=== PATIENT | male | born 1960 | race Caucasian/White ===

== ENCOUNTER 2016-07-02 13:43 | Emergency (ER) | payer BC ==
--- NOTE | 2016-07-02 17:07 | UC ---
Abdominal Pain Male HPI - HPI Summary HPI Summary: The patient comes in today for: 1. Abdominal pain/alcoholism: Onset: 7 days ago. Palliative/provocative: Nothing made the abdominal pain better or worse. Quality: No abdominal pain at this time. And his jaundice has improved. Region: Abdomen Severity: 0/10 Time: Constant. Associated symptoms: Event: Alcoholism: He has been drinking about 24 years on and off. Initially, he drank for 15 years, then stopped for 7. He started drinking again for 5 years and then stopped a second time for 5 years and then started a third time drinking 4 years. At the end of this 4 years, he suffered: a. Yellow skin color b. Epigastric abdominal pain and lower left pain--only 2/10 He got scared of the jaundiced and stopped weaning himself off. He has been off alcohol totally for one week. Abdominal pain: He states that over the last week, his abdominal pain has gotten better. He denies any other symptoms. However, he is interested in knowing his state of health. He has some swelling of his feet/ankle. Regular PCP: Dr. Lang *He states that he is going to and in the process of getting a sponsor. 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 - Allergies/Home Medications Allergies/Adverse Reactions: Allergies Allergy/AdvReac Type Severity Reaction Status Date / Time No Known Allergies Allergy Verified 07/02/16 15:39 Home Medications: Home Medications NK [No Home Medications Reported] 07/02/16 [History Confirmed 07/02/16] PMH/Surg Hx/FS Hx/Imm Hx Previously Healthy: No Endocrine History Of: Denies: Diabetes, Thyroid Disease, Hyperthyroidism, Hypothyroidism, Dyslipidemia Cardiovascular History Of: Denies: Cardiac Disorders, Hypertension, Pacemaker/ICD, Myocardial Infarction , Congestive Heart Failure, Atrial Fibrillation, Deep Vein Thrombosis, Bleeding Disorders Respiratory History Of: Denies: COPD, Asthma, Bronchitis, Pneumonia, Pulmonary Embolism GI/ History Of: Reports: Gall Bladder Disease - He had a gallstone not removed. Denies: Gastroesophageal Reflux, Ulcer, Gastrointestinal Bleed, Kidney Stones , Diverticulitis, Renal Disease, Urosepsis Neurological History Of: Denies: TIA, CVA, Dementia, Seizures, Migraine Psychological History Of: Denies: Anxiety, Depression, Bipolar Disorder, Schizophrenia, Post Traumatic Stress Disorder Cancer History Of: Denies: Lung Cancer, Colorectal Cancer, Breast Cancer, Prostate Cancer, Cervical Cancer Other History Of: Negative For: HIV, Hepatitis B, Hepatitis C, Anticoagulant Therapy - Surgical History Surgical History: None - Family History Known Family History: Negative: Cardiac Disease, Hypertension - Social History Occupation: Employed Full-time Alcohol Use: see amount below Alcohol Amount: before quitting, drank 1 bottle of vodka every 3 days Substance Use Type: None Smoking Status (MU): Current Every Day Smoker Amount Used/How Often: 3/4 pack a day Review of Systems Constitutional: Negative Skin: Negative Eyes: Negative ENT: Negative Respiratory: Negative Cardiovascular: Negative Gastrointestinal: Abdominal Pain Genitourinary: Negative All Other Systems Reviewed And Are Negative: Yes Physical Exam Triage Information Reviewed: Yes Appearance: Well-Appearing - He is in no distress, but he has yellow jaundice which he states is better than before., No Pain Distress, Ill-Appearing - He has yellow jaundice of the sclera and skin, but h states that it is better. Vital Signs: Initial Vital Signs Temp 98.4 F 07/02/16 15:42 Pulse 78 07/02/16 15:42 Resp 18 07/02/16 15:42 BP 122/69 07/02/16 15:42 Pulse Ox 100 07/02/16 15:42 Vital Signs Reviewed: Yes Eyes: Positive: Conjunctiva Clear. Negative: Discharge ENT: Positive: Hearing grossly normal. Negative: Pharyngeal erythema, Nasal congestion, Nasal drainage, TM bulging, TM dull, TM red, Tonsillar swelling, Tonsillar exudate Dental: Negative: Gross Decay/Caries @, Dental Fracture @ Neck: Positive: Supple, Nontender, No Lymphadenopathy. Negative: Nuchal Rigidity Respiratory: Positive: Lungs clear, No respiratory distress, No accessory muscle use. Negative: Rhonchi, Wheezing Cardiovascular: Positive: RRR, No Murmur, Other: - No Parasternal heave. NO gallop Abdomen Description: Positive: Nontender, No Organomegaly, Soft, Other: - He has abdominal wall varicose veins/ caput medusa. There is slight shifting dullness and central typmany. The liver edge is 4 fingerbreaths below the inferior rib margin of the anterior axillary line. NO epigastric tenderness. Spleenomegally,.. Negative: Distended, Guarding Musculoskeletal: Positive: Strength Intact, ROM Intact, Edema @ - He has edema of the lower legs., Other: - He has no asterixis. Neurological: Positive: Alert, Muscle Tone Normal Psychological: Positive: Age Appropriate Behavior, Consolable, Other: - He is oriented. Skin: Negative: rashes, breakdown Abd Pain Male Course/Dx - Differential Dx/Clinical Impression Provider Diagnoses: Abdominal pain, resolved. Alcoholism,. Resolving alcoholic hepatitis Discharge - Discharge Plan Condition: Stable Disposition: HOME Patient Education Materials: Alcohol Dependence (ED) Referrals: Romaine Lang MD [Primary Care Provider] - As Soon As Possible (Please see your primary care provider as soon as you can for further evaluation and treatment.) Additional Instructions: Take a one-a-day multiple vitamin daily. Refrain from alcohol use, and see AA daily.
[2016-07-02 17:57] VITALS: BP 126/81
[2016-07-03 10:35] LABS: Add Diff/Slide Review? Slide Review Added; Comments Flag Yes; Hematocrit 42 % (42-52); Hemoglobin 14.2 g/dl (14.0-18.0); Mean Corpuscular HGB Conc 34 g/dl (31-36); Mean Corpuscular Hemoglobin 35 pg (27-31); Mean Corpuscular Volume 103 fL (80-94); Mean Platelet Volume 9 um3 (7.4-10.4); Red Blood Count 4.02 10^6/ul (4.0-5.4); Red Cell Distribution Width 17 % (10.5-15); White Blood Count 5.4 10^3/ul (3.5-10.8)
[2016-07-03 10:55] LABS: Albumin 3.1 g/dL (3.2-5.2); BUN/Creatinine Ratio 8.6 (8-20); Calcium 8.4 mg/dL (8.6-10.3); EGFR African American 126.3 (>60); EGFR Non-African American 98.2 (>60); Globulin 2.7 g/dL (2-4); Potassium 3.1 mmol/L (3.5-5.0); Total Protein 5.8 g/dL (6.4-8.9)
== END 2016-07-02 17:59 | disposition home or self-care (01) ==
LOC: UCEAST 13:43
DX: R10.13 Epigastric pain (principal); R17 Unspecified jaundice; F10.20 Alcohol dependence, uncomplicated; F17.210 Nicotine dependence, cigarettes, uncomplicated
CPT/HCPCS: 36415; 80053; 85025; 99202; G0463

== ENCOUNTER → 2016-10-21 05:08 | Emergency (ER) | payer BC ==
[~2016-10-21 05:08] MED LIST: Magnesium Sulfate 2 GM IV* 2 GM/50 ML BAG IV ONE; NS 0.9% 1000 ML* 2,000 ML IV ONE; Thiamine IV* 100 MG, Folic Acid IV* 1 MG, Multiple Vitamin IV ADULT* 10 ML in NS 0.9% 1... IV ONE
[2016-10-21 05:12] VITALS: BP 112/66
[2016-10-21 06:37] LABS: Hematocrit 43 % (42-52); Hemoglobin 14.7 g/dl (14.0-18.0); Mean Corpuscular HGB Conc 34 g/dl (31-36); Mean Corpuscular Hemoglobin 35 pg (27-31); Mean Corpuscular Volume 102 fL (80-94); Mean Platelet Volume 8 um3 (7.4-10.4); Red Blood Count 4.22 10^6/ul (4.0-5.4); Red Cell Distribution Width 15 % (10.5-15); White Blood Count 5.3 10^3/ul (3.5-10.8)
[2016-10-21 06:39] LABS: Comments Flag Yes
[2016-10-21 06:40] LABS: Add Diff/Slide Review? Slide Review Added
[2016-10-21 06:49] LABS: ALT 29 U/L (7-52); AST 88 U/L (13-39); Acetaminophen < 15 mcg/mL; Albumin 3.6 g/dL (3.2-5.2); Alkaline Phosphatase 175 U/L (34-104); Anion Gap 5 mmol/L (2-11); Blood Urea Nitrogen 4 mg/dL (6-24); CO2 Carbon Dioxide 30 mmol/L (22-32); Calcium 9.1 mg/dL (8.6-10.3); Chloride 102 mmol/L (101-111); Creatine Kinase 81 U/L (10-223); EGFR African American 188.8 (>60); EGFR Non-African American 146.8 (>60); Globulin 3.3 g/dL (2-4); Glucose 126 mg/dL (70-100); Magnesium 1.8 mg/dL (1.9-2.7); Potassium 3.3 mmol/L (3.5-5.0); Salicylate < 2.50 mg/dL (<30); Sodium 137 mmol/L (133-145); Total Protein 6.9 g/dL (6.4-8.9)
[2016-10-21 06:57] LABS: Alcohol 435 mg/dL (<10)
--- NOTE | 2016-10-21 07:00 | ED ---
Katlyn Felipe Rebecca, scribed for James Koroma MD on 10/21/16 at 0547 . Substance Abuse/Use - HPI Summary HPI Summary: Pt is a 56 y/o M who presents to ED accompanied by his who presents to ED requesting detox. Pt reports "I'm a drunk, I got to sober up" and "I just want to be a normal person." Last drank 1-2 hours [employer]. Pt additionally c/o mild, bilateral LE pain ranked 2/10, secondary to poor circulation. He will be having surgery soon to "replace the arteries." He has tried rehab 5 times in the past with relapses. Has experienced withdrawal before. - History Of Current Complaint Chief Complaint: EDGeneral Stated Complaint: DETOX Time Seen by Provider: 10/21/16 05:38 Hx Obtained From: Patient, Family/Supervisor [employer] - Ingestion History: Type/Name Of Drug - EtOH, Approximate Time Of Ingestion - 1- 2 hours [employer] Overdose Characteristics: Oral Timing Of Abuse: Daily Aggravating Factor(s): Nothing Alleviating Factor(s): Nothing Associated Signs And Symptoms: Other: - Bilateral LE pain - Allergies/Home Medications Allergies/Adverse Reactions: Allergies Allergy/AdvReac Type Severity Reaction Status Date / Time No Known Allergies Allergy Verified 10/21/16 05:29 PMH/Surg Hx/FS Hx/Imm Hx Endocrine/Hematology History: Denies: Hx Anticoagulant Therapy, Hx Diabetes, Hx Thyroid Disease Cardiovascular History: Denies: Hx Congestive Heart Failure, Hx Deep Vein Thrombosis, Hx Hypertension , Hx Myocardial Infarction, Hx Pacemaker/ICD Respiratory History: Denies: Hx Asthma, Hx Chronic Obstructive Pulmonary Disease (COPD), Hx Lung Cancer, Hx Pneumonia, Hx Pulmonary Embolism GI History: Reports: Hx Gall Bladder Disease - He had a gallstone not removed. Denies: Hx Gastrointestinal Bleed, Hx Ulcer, Hx Urosepsis History: Denies: Hx Kidney Stones, Hx Renal Disease Neurological History: Denies: Hx Dementia, Hx Migraine, Hx Seizures, Hx Transient Ischemic Attacks (TIA) Psychiatric History: Denies: Hx Anxiety, Hx Depression, Hx Schizophrenia, Hx Bipolar Disorder - Immunization History Date of Tetanus Vaccine: unk Date of Influenza Vaccine: unk Infectious Disease History: No Infectious Disease History: Denies: Traveled Outside the [place] in Last 30 Days - Family History Known Family History: Negative: Cardiac Disease, Hypertension - Social History Alcohol Use: Daily Alcohol Amount: 1 bottle of vodka per day Substance Use Type: Reports: None Smoking Status (MU): Current Every Day Smoker Amount Used/How Often: 3/4 pack a day Review of Systems Positive: Arthralgia - Bilateral LE pain secondary to poor circulation Positive: Other - Requesting detox All Other Systems Reviewed And Are Negative: Yes Physical Exam - Summary Physical Exam Summary: The patient is well-nourished in no acute distress and in no acute pain. The skin is warm and dry and skin color reflects adequate perfusion. HEENT: The head is normocephalic and atraumatic. The pupils are equal and reactive. The conjunctivae are clear and without drainage. Nares are patent and without drainage. Mouth reveals moist mucous membranes and the throat is without erythema and exudate. The external ears are intact. The ear canals are patent and without drainage. The tympanic membranes are intact. Neck is supple with full range of motion and non-tender. Respiratory: Chest is non-tender. Lungs are clear to auscultation and breath sounds are symmetrical and equal. Cardiovascular: Hear is regular rate and rhythm. There is no murmur or rub auscultated. Pulses are symmetrical and equal. Abdomen: The abdomen is soft and non-tender. There are normal bowel sounds heard in all four quadrants and there is no organomegaly palpated. Musculoskeletal: There is no back pain noted. Extremities are non-tender with full range of motion. There is no calf tenderness elicited. There is bilateral LE swelling. Neurological: Patient is alert and oriented to person, place and time. Psychiatric: The patient has an appropriate affect and does not exhibit any anxiety or depression. Triage Information Reviewed: Yes Vital Signs On Initial Exam: Initial Vitals Temp Pulse Resp BP Pulse Ox 97.6 F 78 18 112/66 99 10/21/16 05:09 10/21/16 05:09 10/21/16 05:09 10/21/16 05:09 10/21/16 05:09 Vital Signs Reviewed: Yes - [place] Coma Scale Coma Scale Total: 15 Diagnostics - Vital Signs Vital Signs Temp Pulse Resp BP Pulse Ox 10/21/16 05:12 97.6 F 78 18 112/66 96 10/21/16 05:09 97.6 F 78 18 112/66 99 - Laboratory Lab Results: Lab Results 10/21/16 10/21/16 10/21/16 Range/Units 06:10 06:10 06:10 WBC 5.3 (3.5-10.8) 10^3/ul RBC 4.22 (4.0-5.4) 10^6/ul Hgb 14.7 (14.0-18.0) g/dl Hct 43 (42-52) % MCV 102 H (80-94) fL MCH 35 H (27-31) pg MCHC 34 (31-36) g/dl RDW 15 (10.5-15) % Plt Count 66 L (150-450) 10^3/ul MPV 8 (7.4-10.4) um3 Neut % (Auto) 50.9 (38-83) % Lymph % (Auto) 35.4 (25-47) % Freestone % (Auto) 8.3 (1-9) % Eos % (Auto) 4.3 (0-6) % Baso % (Auto) 1.1 (0-2) % Absolute Neuts (auto) 2.7 (1.5-7.7) 10^3/ul Absolute Lymphs (auto) 1.9 (1.0-4.8) 10^3/ul Absolute Monos (auto) 0.4 (0-0.8) 10^3/ul Absolute Eos (auto) 0.2 (0-0.6) 10^3/ul Absolute Basos (auto) 0.1 (0-0.2) 10^3/ul Absolute Nucleated RBC 0 10^3/ul Nucleated RBC % 0.1 Sodium 137 (133-145) mmol/L Potassium 3.3 L (3.5-5.0) mmol/L Chloride 102 (101-111) mmol/L Carbon Dioxide 30 (22-32) mmol/L Anion Gap 5 (2-11) mmol/L BUN 4 L (6-24) mg/dL Creatinine 0.57 L (0.67-1.17) mg/dL Est GFR ( Amer) 188.8 (>60) Est GFR (Non-Af Amer) 146.8 (>60) BUN/Creatinine Ratio 7.0 L (8-20) Glucose 126 H (70-100) mg/dL Lactic Acid 2.2 H* (0.5-2.0) mmol/L Calcium 9.1 (8.6-10.3) mg/dL Magnesium 1.8 L (1.9-2.7) mg/dL Total Bilirubin 2.60 H (0.2-1.0) mg/dL AST 88 H (13-39) U/L ALT 29 (7-52) U/L Alkaline Phosphatase 175 H (34-104) U/L Total Creatine Kinase 81 (10-223) U/L Total Protein 6.9 (6.4-8.9) g/dL Albumin 3.6 (3.2-5.2) g/dL Globulin 3.3 (2-4) g/dL Albumin/Globulin Ratio 1.1 (1-3) Salicylates < 2.50 (<30) mg/dL Acetaminophen < 15 mcg/mL Serum Alcohol 435 H* (<10) mg/dL Result Diagrams: 10/21/16 06:10 10/21/16 06:10 Lab Statement: Any lab studies that have been ordered have been reviewed, and results considered in the medical decision making process. - EKG 0610 Cardiac Rate: NL - 81 bpm EKG Rhythm: Sinus Rhythm EKG Interpretation: LAD, No STEMI Course/Dx - Course Assessment/Plan: Pt is a 56 y/o M who presents to ED accompanied by his who presents to ED requesting detox. Pt reports "I'm a drunk, I got to sober up " and "I just want to be a normal person." Last drank 1-2 hours [employer]. Pt additionally c/o mild, bilateral LE pain ranked 2/10, secondary to poor circulation. He will be having surgery soon to "replace the arteries." He has tried rehab 5 times in the past with relapses. Has experienced withdrawal before. EKG reveals sinus rhythm with no STEMI. Serum alcohol of 435, lactic acid of 2.2. Pt will be signed out, pending dispo, awaiting EtOH metabolism. - Diagnoses Differential Diagnosis/HQI/PQRI: Positive: Alcohol Abuse, Metabolic Disorder Provider Diagnoses: Acute alcohol intoxication Discharge - Discharge Plan Condition: Stable Disposition: OTHER Discharge Disposition Comment: Pt will be signed out, pending EtOH metabolism Referrals: Isrrael Dobbins MD [Primary Care Provider] - The documentation as recorded by the Katlyn perez Rebecca accurately reflects the service I personally performed and the decisions made by me, James Koroma MD.
== END ==
LOC: ED 05:08
DX: F10.129 Alcohol abuse with intoxication, unspecified (principal); Y90.8 Blood alcohol level of 240 mg/100 ml or more
CPT/HCPCS: 36415; 80053; 80320; 80329; 82550; 83605; 83735; 85025; 93005; 96365; 99283; G0480; J3411; J3475

== ENCOUNTER 2017-10-22 20:24 | Emergency (ER) | payer BC ==
[2017-10-22] MEDS ORDERED: Morphine INJ* 2 MG/ML 1 ML SYRINGE (TWO MG - NEW SYRINGE VERSION) IV ONE (20:32)
[2017-10-22] MEDS ORDERED: Ondansetron INJ* 2 MG/ML VIAL IV ONE (20:47)
[2017-10-22] MEDS ORDERED: Ondansetron INJ* 2 MG/ML VIAL ONE (20:48)
[2017-10-22] MEDS ORDERED: Morphine VIAL* 4 MG/ML VIAL (1 ml vial) IV ONE (21:07)
[2017-10-22] MEDS ORDERED: Morphine VIAL* 10 MG/ML 1 ML VIAL ONE (21:15)
--- NOTE | 2017-10-22 21:19 | ED ---
Abdominal Pain/Male - HPI Summary HPI Summary: Pt is a 57 year old male presenting to the ED with a chief complaint of abdominal pain currently rated at about 6 or 7/10, initially 10/10 that started around last week. 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 On 10/20 and 10/21 he was fine, but today he was at work starting at 4: 30am, until around 1930 this evening. He had some lemonade which he thinks caused the pain again, and the pain has been constant since 1829. He laid down in the booths of his restaurant and elevated his feet, neither of which helped, and tried eating a pancake with banana which also did not help. The pt complains of ABD pain all across his upper quadrants. - History of Current Complaint Chief Complaint: EDAbdPain Stated Complaint: ABD PAIN Time Seen by Provider: 10/22/17 20:31 Hx Obtained From: Patient Onset/Duration: Lasting Days Timing: Constant, Lasting Days - episode 10/19, episode today Severity Initially: Severe Severity Currently: Moderate Pain Intensity: 7 Pain Scale Used: 0-10 Numeric Location: Epigastric Radiates: No Aggravating Factor(s): Food - acidic foods, pizza, lemonade Associated Signs And Symptoms: Positive: Urinary Symptoms - hematuria, Vomiting - Allergies/Home Medications Allergies/Adverse Reactions: Allergies Allergy/AdvReac Type Severity Reaction Status Date / Time No Known Allergies Allergy Verified 08/05/17 14:00 PMH/Surg Hx/FS Hx/Imm Hx Previously Healthy: No Endocrine/Hematology History: Denies: Hx Anticoagulant Therapy, Hx Diabetes, Hx Thyroid Disease Cardiovascular History: Denies: Hx Angina, Hx Congestive Heart Failure, Hx Coronary Artery Disease, Hx Deep Vein Thrombosis, Hx Hypertension, Hx Myocardial Infarction, Hx Pacemaker /ICD, Hx Valvular Heart Disease Respiratory History: Denies: Hx Asthma, Hx Chronic Obstructive Pulmonary Disease (COPD), Hx Lung Cancer, Hx Pneumonia, Hx Pulmonary Embolism GI History: Reports: Hx Cirrhosis - from EtOH abuse, Hx Gall Bladder Disease - He had a gallstone not removed. 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 L artery to be fixed soon. 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 No stigmata of cirrhosis Skin: Warm, dry, no obvious rash Eyes: sclera ecteric, no conjunctival pallor, mild jaundice ENT: mucous membranes moist, pharynx appears normal Neck: Supple, nontender Respiratory: Clear to auscultation, no signs of respiratory distress Cardiovascular: Normal S1, S2. No murmurs. Normal distal pulses in tibial and radial bilaterally. Abdomen: RUQ tenderness with guarding, normal active bowel sounds present Musculoskeletal: R leg has large scar from previous surgery, moderate pitting edema with chronic lymphedema changes. Neurological: A&Ox3, awake and alert, mentation is normal, speech is fluent and appropriate Psychiatric: affect is normal, does not appear anxious or depressed Vital Signs On Initial Exam: Initial Vitals Resp 16 10/22/17 20:54 Diagnostics - Vital Signs Vital Signs Temp Pulse Resp BP Pulse Ox 10/22/17 20:59 98.1 F 74 18 114/60 99 10/22/17 20:54 16 - Laboratory Result Diagrams: 10/22/17 21:04 10/22/17 21:04 Lab Statement: Any lab studies that have been ordered have been reviewed, and results considered in the medical decision making process. - Ultrasound No standard instances Ultrasound Interpretation: Positive (See Comments) - Gallbladder US: Cholelithiasis. There is gallbladder wall thickening measuring 4.5 mm. Given the presence of a negative ultrasonographic Collins's, thickening may be on a reactive basis. Please correlate clinically. Dilated common bile duct measuring up to 1.3 cm. Distal stone or mass not excluded. Nodular hepatic margins indicating chronic hepatic disease. Ultrasound Interpretation Completed By: Radiologist - EKG 1 Cardiac Rate: NL - 76 EKG Rhythm: Sinus Rhythm - nml ST Segment: Normal Ectopy: None EKG Interpretation: This is a normal EKG. Abdominal Pain Fem Course/Dx - Course Course Of Treatment: This is a 57 y/o man with a medical history relevant for cirrhosis, who presents today with symptomatic gall bladder disease and RUQ pain. He has clinical and biochemical findings concerning for CBD stone and cholecystitis, and given that [facility] does not have a basket hand weaver health occupations teacher, it was felt that the patient should be transferred to a tertiary care center. - Diagnoses Differential Diagnosis/HQI/PQRI: Gall Bladder Disease, Hepatitis, Ischemic Bowel , Peptic Ulcer Disease Provider Diagnoses: Common bile duct (CBD) obstruction, Hyperbilirubinemia, Cirrhosis of liver, Cholecystitis Discharge - Sign-Out/Discharge Documenting (check all that apply): Patient Departure - transfer to [facility] - Discharge Plan Condition: Guarded Disposition: TRANS HIGHER LVL OF CARE FAC Referrals: Isrrael Dobbins MD [Primary Care Provider] - - Billing Disposition and Condition Condition: GUARDED Disposition: Trans Higher Lvl of Care Fac - Attestation Statements Document Initiated by [place]: Yes Documenting Scribe: Kitty Ly Provider For Whom [place] is Documenting (Include Credential): Peng Arce MD. Scribe Attestation: Kitty Felipe, jennifered for Peng Arce MD. on 10/24/17 at 1844. Scribe Documentation Reviewed: Yes Provider Attestation: The documentation as recorded by the Kitty perez accurately reflects the service I personally performed and the decisions made by me, Peng Arce MD.
[2017-10-22 21:30] LABS: EGFR Non-African American 89.8 (>60)
--- OUTSIDE RECORDS SUMMARY | 2017-10-22 21:35 | XMS REPORT ---
:1960 External Reference #:[id number] Author Organization [facility] Address [address] [place] [address] Phone [phone] Care Team Providers Name Role Phone Isrrael Dobbins MD Primary Care Physician Unavailable Payers Type Date Identification Numbers Payment Provider Subscriber Commercial Effective: Policy Number: BS Lola Coughlin 2016 [id number] Expires: 2016 PayID: [id number] [address] [address] MARYBETH Kauffman [address] [employer]igap Part B Policy Number: [id number] BS Lola Coughlin PayID: [id number] [address] [address] [place] [address] Problems Date Description Provider Status Onset: 03/28/2017 Alcoholic cirrhosis Isrrael Dobbins M.D.,FACP Active Onset: 08/30/2016 Peripheral arterial occlusive Isrrael Dobbins M.D.,FACP Active disease Onset: 09/02/2016 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., FACBenson Active vena cava Onset: 09/11/2016 Aneurysm of popliteal artery Isrrael Dobbins M.D.,FACP Active Note: bilateral Onset: 09/11/2016 Acquired thrombocytopenia Isrrael Dobbins M.D.,FACP 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 of regular coffee per day Exercise Type/Frequency Exercises regularly Physically active but sits down q 5 minutes R/T calf pain Allergies, Adverse Reactions, Alerts Date Description Reaction Status Severity Comments 03/05/2010 NKDA active Medications Medication Date Status Form Strength Qnty SIG Indications Ordering Provider Metoprolol 08/27 Active Tablets 25mg 90tab 1 by mouth Isrrael Succinate ER /2018 ER 24HR s every day James Dobbins M.D.,FACP Nicotrol 02/05 Active Inhaler 10mg 42uni 1 cartridges F17.218 ts every 2 hours James Dobbins, as needed Gabbi,FACBenson Colace 12/25 Active Capsules 100mg 60cap 1 tab by Other /2016 s mouth 3 times Ordering a day as Provider needed constipation Multivitamin 12/25 Active Tablets 30tab 1 by mouth Other /2016 s every day Ordering Provider Xarelto Active Tablets 20mg 1 by mouth every day Furosemide Active Tablets 20mg 90tab 1 by mouth s every morning James Dobbins M.D.,FACP Eplerenone Active Tablets 25mg 90tab 1 by mouth s every day James Dobbins M.D.,FACP Lyrica Active Capsules 50mg 1 by mouth 3x Unknown / a day mdd 3 Tramadol HCL Active Tablets 50mg four times a / day as needed Oxycodone HCL 07/10 Hx Tablets 5mg 4tabs 1 tab by Unknown mouth every 4 - hours as 07/12 needed pain Augmentin 05/05 Hx Tablets 875-125mg 14tab 1 tablet by Unknown s mouth q12 - hours for 7 Inspra 02/05 Hx Tablets 50mg 30tab Take One K70.30 Isrrael s Tablet By James Dobbins - Mouth Every M.DKalia,FACP Augmentin 12/25 Hx Tablets 875-125mg 20tab one by mouth s every 12 Ordering - hours for ten Provider Oxycodone-Acetam 12/25 Hx Tablets 5-325mg 1 tab by Unknown [facility] mouth every 6 - hours as 03/28 needed for pain Toprol XL 11/25 Hx Tablets 25mg 90tab 1 by mouth Susannataybsaurabh ER 24HR s every day Debbi Delaney 05/06 Gabbi Atenolol 11/22 Hx Tablets 25mg 90tab 1 by mouth Ashiaybsaurabh s every day Debbi Delaney 11/24 Gabbi Magnesium Oxide 10/28 Hx Capsules 400mg 30cap 1 po qd E87.6 Charlotte Beckie Schaffer NP 05/06 Klor-Con M15 10/28 Hx Tablets 15Meq 30tab 1 by mouth E87.6 ER s every day [facility] Cotton M.D.,[facility] 05/06 Vitamin K 09/11 Hx Tablets 100mcg 7tabs 1 tab po qd Isrrael (Phytonadione) Beckie Cotton M.D.,FACP 09/18 Aspirin 08/30 Hx Tablets 325mg 30tab 1 by mouth Isrrael s every day Beckie Cotton M.D.,FACP 10/28 Spironolactone 08/07 Hx Tablets 50mg K76.6 Zsofia Dany, - DIRECTOR APPOINTMENT 08/07 Spironolactone 08/07 Hx Tablets 100mg 30tab take 1 tab by K70.30 s mouth every D. Mu, - day Gabbi,FACP 02/05 Chantix Starting 08/07 Hx Tablets 0.5mg X QS use according F17.210 Zsofia Month 11 & 1 mg to package Dany, - X 42 insturction DIRECTOR APPOINTMENT 10/28 Antibiotic 03/05 Hx Adiel Unsure Of Name /2010 Vickie Butts M.D. 07/31 Codeine 00/00 Hx Unknown /0000 - 07/31 KP Adults 50+ 00/00 Hx Tablets 1 by mouth K70.11 Unknown Daily Formula /0000 every day - 04/08 Ibuprofen 00 Hx Tablets 800mg by mouth Unknown /0000 three times a - day as needed 03/28 Aspirin 00 Hx Tablets 325mg take 1 by Unknown /0000 mouth once a - day 05/06 Cephalexin 00 Hx Capsules 500mg 1 by mouth Unknown /0000 four times a - day 08/26 Immunizations CPT Code Status Date Vaccine Reaction Lot # [id number] Given 05/12/2017 Pneumonia Vaccine [id number] Given 02/05/2017 Influenza Virus Vaccine, [id number] Quadrivalent, Split, Preservative Free 21693 Given 08/07/2016 Pneumococcal Conjugate [id number] Vaccine 13 Valent For Intramuscular Use [id number] Given 07/31/2016 Tdap - no immediate reaction, [id number] Tetanus/Diptheria/Acellular pt tolerated injection Pertussis - pw Vital Signs Date Vital Result Comment 10/07/2017 Height 71 inches 5'11" Weight 202.00 lb w/shoes Heart Rate 72 /min BP Systolic Sitting 100 mmHg Lue lg cuff BP Diastolic Sitting 70 mmHg Lue lg cuff BMI (Body Mass Index) 28.2 kg/m2 Ejection Fraction 62% NLM 11/20/16 08/27/2017 Height 71 inches 5'11" Weight 204.00 lb Heart Rate 67 /min BP Systolic Sitting 113 mmHg BP Diastolic Sitting 73 mmHg Body Temperature 98.1 F O2 % BldC Oximetry 98 % BMI (Body Mass Index) 28.4 kg/m2 05/12/2017 Weight 199.00 lb Heart Rate 89 /min BP Systolic 120 mmHg BP Diastolic 65 mmHg Body Temperature 98.4 F O2 % BldC Oximetry 98 % 03/28/2017 Weight 199.25 lb Heart Rate 75 /min BP Systolic Sitting 122 mmHg BP Diastolic Sitting 76 mmHg Body Temperature 98.1 F O2 % BldC Oximetry 97 % 02/05/2017 Weight 201.00 lb Heart Rate 69 /min BP Systolic Sitting 124 mmHg BP Diastolic Sitting 68 mmHg Body Temperature 97.4 F O2 % BldC Oximetry 97 % 11/22/2016 Height 71 inches 5'11" Weight 197.50 lb with shoes Heart Rate 78 /min BP Systolic Sitting 120 mmHg LA reg cuff BP Diastolic Sitting 82 mmHg LA reg cuff BMI (Body Mass Index) 27.5 kg/m2 Ejection Fraction 55% - 60% echo 10/02/16 11/14/2016 Weight 197.00 lb Heart Rate 58 /min BP Systolic Sitting 120 mmHg BP Diastolic Sitting 68 mmHg Body Temperature 97.7 F O2 % BldC Oximetry 98 % 10/28/2016 Weight 196.00 lb Heart Rate 107 /min BP Systolic Sitting 130 mmHg BP Diastolic Sitting 76 mmHg Body Temperature 98.8 F O2 % BldC Oximetry 96 % 09/24/2016 Height 71.5 inches 5'11.50" Weight 200.75 lb with shoes Heart Rate 96 /min BP Systolic Sitting 124 mmHg LA reg cuff BP Diastolic Sitting 70 mmHg LA reg cuff BMI (Body Mass Index) 27.6 kg/m2 09/11/2016 Weight 201.25 lb Heart Rate 67 /min BP Systolic Sitting 108 mmHg BP Diastolic Sitting 60 mmHg Body Temperature 97.6 F O2 % BldC Oximetry 98 % 08/28/2016 Weight 196.50 lb Heart Rate 92 /min BP Systolic Sitting 126 mmHg BP Diastolic Sitting 80 mmHg Body Temperature 98.3 F O2 % BldC Oximetry 98 % 08/07/2016 Height 71 inches 5'11" Weight 198.38 lb Heart Rate 82 /min BP Systolic Sitting 110 mmHg BP Diastolic Sitting 62 mmHg Body Temperature 98.4 F O2 % BldC Oximetry 98 % BMI (Body Mass Index) 27.7 kg/m2 07/31/2016 BP Systolic 118 mmHg BP Diastolic 82 mmHg 07/31/2016 Height 70.75 inches 5'10.75" Weight 200.00 lb Heart Rate 97 /min BP Systolic 118 mmHg BP Diastolic 82 mmHg Body Temperature 97.8 F O2 % BldC Oximetry 99 % BMI (Body Mass Index) 28.1 kg/m2 Results Test Date Test Result H/L Range Note Laboratory test finding 04/02/2017 Hemosure Non-Medicare neg CBC Auto Diff 03/31/2017 White Blood Count 4.0 10^3/uL 3.5-10.8 Red Blood Count 4.28 10^6/uL 4.0-5.4 Hemoglobin 14.5 g/dL 14.0-18.0 Hematocrit 42 % 42-52 Mean Corpuscular Volume 98 fL High 80-94 Mean Corpuscular Hemoglobin 34 pg High 27-31 Mean Corpuscular HGB Conc 35 g/dL 31-36 Red Cell Distribution Width 18 % High 10.5-15 Platelet Count 75 10^3/uL Low 150-450 1 Mean Platelet Volume 9 um3 7.4-10.4 Abs Neutrophils 1.8 10^3/uL 1.5-7.7 Abs Lymphocytes 1.4 10^3/uL 1.0-4.8 Abs Monocytes 0.5 10^3/uL 0-0.8 Abs Eosinophils 0.2 10^3/uL 0-0.6 Abs Basophils 0 10^3/uL 0-0.2 Abs Nucleated RBC 0 10^3/uL Granulocyte % 45.1 % 38-83 Lymphocyte % 36.0 % 25-47 Monocyte % 13.4 % High 1-9 Eosinophil % 4.6 % 0-6 Basophil % 0.9 % 0-2 Nucleated Red Blood Cells % 0.2 Comp Metabolic Panel 03/31/2017 Sodium 136 mmol/L 133-145 Potassium 3.9 mmol/L 3.5-5.0 Chloride 105 mmol/L 101-111 Co2 Carbon Dioxide 26 mmol/L 22-32 Anion Gap 5 mmol/L 2-11 Glucose 105 mg/dL High 70-100 Blood Urea Nitrogen 8 mg/dL 6-24 Creatinine 0.65 mg/dL Low 0.67-1.17 BUN/Creatinine Ratio 12.3 8-20 Calcium 9.2 mg/dL 8.6-10.3 Total Protein 6.3 g/dL Low 6.4-8.9 Albumin 3.3 g/dL 3.2-5.2 Globulin 3.0 g/dL 2-4 Albumin/Globulin Ratio 1.1 1-3 Total Bilirubin 2.80 mg/dL High 0.2-1.0 Alkaline Phosphatase 145 U/L High 34-104 Alt 23 U/L 7-52 Ast 43 U/L High 13-39 Egfr Non- 126.2 >60 Egfr 162.3 >60 2 Laboratory test finding 03/31/2017 Magnesium 1.8 mg/dL Low 1.9-2.7 Basic Metabolic Panel 11/08/2016 Sodium 133 mmol/L 133-145 Potassium 4.4 mmol/L 3.5-5.0 Chloride 102 mmol/L 101-111 Co2 Carbon Dioxide 27 mmol/L 22-32 Anion Gap 4 mmol/L 2-11 Glucose 94 mg/dL 70-100 Blood Urea Nitrogen 10 mg/dL 6-24 Creatinine 0.66 mg/dL Low 0.67-1.17 BUN/Creatinine Ratio 15.2 8-20 Calcium 10.1 mg/dL 8.6-10.3 Egfr Non- 124.0 >60 Egfr 159.4 >60 3 Laboratory test finding 11/08/2016 Magnesium 1.8 mg/dL Low 1.9-2.7 CBC Auto Diff 10/21/2016 White Blood Count 5.3 10^3/uL 3.5-10.8 Red Blood Count 4.22 10^6/uL 4.0-5.4 Hemoglobin 14.7 g/dL 14.0-18.0 Hematocrit 43 % 42-52 Mean Corpuscular Volume 102 fL High 80-94 Mean Corpuscular Hemoglobin 35 pg High 27-31 Mean Corpuscular HGB Conc 34 g/dL 31-36 Red Cell Distribution Width 15 % 10.5-15 Platelet Count 66 10^3/uL Low 150-450 Mean Platelet Volume 8 um3 7.4-10.4 Abs Neutrophils 2.7 10^3/uL 1.5-7.7 Abs Lymphocytes 1.9 10^3/uL 1.0-4.8 Abs Monocytes 0.4 10^3/uL 0-0.8 Abs Eosinophils 0.2 10^3/uL 0-0.6 Abs Basophils 0.1 10^3/uL 0-0.2 Abs Nucleated RBC 0 10^3/uL Granulocyte % 50.9 % 38-83 Lymphocyte % 35.4 % 25-47 Monocyte % 8.3 % 1-9 Eosinophil % 4.3 % 0-6 Basophil % 1.1 % 0-2 Nucleated Red Blood Cells % 0.1 Comp Metabolic Panel 10/21/2016 Sodium 137 mmol/L 133-145 Potassium 3.3 mmol/L Low 3.5-5.0 Chloride 102 mmol/L 101-111 Co2 Carbon Dioxide 30 mmol/L 22-32 Anion Gap 5 mmol/L 2-11 Glucose 126 mg/dL High 70-100 Blood Urea Nitrogen 4 mg/dL Low 6-24 Creatinine 0.57 mg/dL Low 0.67-1.17 BUN/Creatinine Ratio 7.0 Low 8-20 Calcium 9.1 mg/dL 8.6-10.3 Total Protein 6.9 g/dL 6.4-8.9 Albumin 3.6 g/dL 3.2-5.2 Globulin 3.3 g/dL 2-4 Albumin/Globulin Ratio 1.1 1-3 Total Bilirubin 2.60 mg/dL High 0.2-1.0 Alkaline Phosphatase 175 U/L High 34-104 Alt 29 U/L 7-52 Ast 88 U/L High 13-39 Egfr Non- 146.8 >60 Egfr 188.8 >60 4 Laboratory test finding 10/21/2016 Magnesium 1.8 mg/dL Low 1.9-2.7 Creatine Kinase(CK) 81 U/L 10-223 Acetaminophen < 15 g/mL 5 Salicylate < 2.50 mg/dL <30 Alcohol 435 mg/dL High <10 6 Lactic Acid 2.2 mmol/L High 0.5-2.0 7 CBC Auto Diff 09/10/2016 White Blood Count 5.6 10^3/uL 3.5-10.8 Red Blood Count 3.77 10^6/uL Low 4.0-5.4 Hemoglobin 13.5 g/dL Low 14.0-18.0 Hematocrit 39 % Low 42-52 Mean Corpuscular Volume 103 fL High 80-94 Mean Corpuscular Hemoglobin 36 pg High 27-31 Mean Corpuscular HGB Conc 35 g/dL 31-36 Red Cell Distribution Width 14 % 10.5-15 Platelet Count 70 10^3/uL Low 150-450 8 Mean Platelet Volume 8 um3 7.4-10.4 Abs Neutrophils 3.2 10^3/uL 1.5-7.7 Abs Lymphocytes 1.6 10^3/uL 1.0-4.8 Abs Monocytes 0.6 10^3/uL 0-0.8 Abs Eosinophils 0.2 10^3/uL 0-0.6 Abs Basophils 0.1 10^3/uL 0-0.2 Abs Nucleated RBC 0.01 10^3/uL Granulocyte % 56.8 % 38-83 Lymphocyte % 28.1 % 25-47 Monocyte % 10.0 % High 1-9 Eosinophil % 3.8 % 0-6 Basophil % 1.3 % 0-2 Nucleated Red Blood Cells % 0.1 Comp Metabolic Panel 09/10/2016 Sodium 136 mmol/L 133-145 Potassium 3.6 mmol/L 3.5-5.0 Chloride 107 mmol/L 101-111 Co2 Carbon Dioxide 25 mmol/L 22-32 Anion Gap 4 mmol/L 2-11 Glucose 136 mg/dL High 70-100 Blood Urea Nitrogen 10 mg/dL 6-24 Creatinine 0.67 mg/dL 0.67-1.17 BUN/Creatinine Ratio 14.9 8-20 Calcium 9.2 mg/dL 8.6-10.3 Total Protein 6.1 g/dL Low 6.4-8.9 Albumin 3.1 g/dL Low 3.2-5.2 Globulin 3.0 g/dL 2-4 Albumin/Globulin Ratio 1.0 1-3 Total Bilirubin 3.40 mg/dL High 0.2-1.0 Alkaline Phosphatase 162 U/L High 34-104 Alt 23 U/L 7-52 Ast 36 U/L 13-39 Egfr Non- 122.3 >60 Egfr 157.2 >60 9 Inr/Protime 09/10/2016 Inr 1.72 High 0.89-1.11 Laboratory test finding 09/10/2016 Pathologist Review (SEE NOTE) 10 Comp Metabolic Panel 08/15/2016 Sodium 135 mmol/L 133-145 Potassium 4.3 mmol/L 3.5-5.0 Chloride 105 mmol/L 101-111 Co2 Carbon Dioxide 25 mmol/L 22-32 Anion Gap 5 mmol/L 2-11 Glucose 91 mg/dL 70-100 Blood Urea Nitrogen 9 mg/dL 6-24 Creatinine 0.58 mg/dL Low 0.67-1.17 BUN/Creatinine Ratio 15.5 8-20 Calcium 9.3 mg/dL 8.6-10.3 Total Protein 6.0 g/dL Low 6.4-8.9 Albumin 3.0 g/dL Low 3.2-5.2 Globulin 3.0 g/dL 2-4 Albumin/Globulin Ratio 1.0 1-3 Total Bilirubin 5.20 mg/dL High 0.2-1.0 Alkaline Phosphatase 180 U/L High 34-104 Alt 34 U/L 7-52 Ast 54 U/L High 13-39 Egfr Non- 144.4 >60 Egfr 185.7 >60 11 CBC Auto Diff 08/15/2016 White Blood Count 5.3 10^3/uL 3.5-10.8 Red Blood Count 4.20 10^6/uL 4.0-5.4 Hemoglobin 14.6 g/dL 14.0-18.0 Hematocrit 43 % 42-52 Mean Corpuscular Volume 102 fL High 80-94 Mean Corpuscular Hemoglobin 35 pg High 27-31 Mean Corpuscular HGB Conc 34 g/dL 31-36 Red Cell Distribution Width 13 % 10.5-15 Platelet Count 83 10^3/uL Low 150-450 12 Mean Platelet Volume 9 um3 7.4-10.4 Abs Neutrophils 2.7 10^3/uL 1.5-7.7 Abs Lymphocytes 1.7 10^3/uL 1.0-4.8 Abs Monocytes 0.5 10^3/uL 0-0.8 Abs Eosinophils 0.3 10^3/uL 0-0.6 Abs Basophils 0.1 10^3/uL 0-0.2 Abs Nucleated RBC 0.01 10^3/uL Granulocyte % 50.8 % 38-83 Lymphocyte % 32.8 % 25-47 Monocyte % 8.8 % 1-9 Eosinophil % 6.5 % High 0-6 Basophil % 1.1 % 0-2 Nucleated Red Blood Cells % 0.1 Hepatitis Acute Panel 08/01/2016 Hepatitis C Antibody Nonreactive Nonreactive 13 Hepatitis A AB Igm Nonreactive Nonreactive 14 Hepatitis B Core AB Igm Nonreactive Nonreactive 15 Hepatitis B Surface Ag Nonreactive Nonreactive 16 Laboratory test finding 08/01/2016 Glucose 92 mg/dL 70-100 Lipid Profile (Trig/Chol/HDL) 08/01/2016 Triglycerides 109 mg/dL 17 Cholesterol 241 mg/dL 18 HDL Cholesterol 43.1 mg/dL 19 LDL Cholesterol 176 mg/dL 20 Inr/Protime 08/01/2016 Inr 1.35 High 0.89-1.11 Comp Metabolic Panel 08/01/2016 Sodium 133 mmol/L 133-145 Chloride 106 mmol/L 101-111 Co2 Carbon Dioxide 23 mmol/L 22-32 Blood Urea Nitrogen 9 mg/dL 6-24 Creatinine 0.61 mg/dL Low 0.67-1.17 BUN/Creatinine Ratio 14.8 8-20 Calcium 8.8 mg/dL 8.6-10.3 Total Protein 6.1 g/dL Low 6.4-8.9 Albumin 3.0 g/dL Low 3.2-5.2 Globulin 3.1 g/dL 2-4 Albumin/Globulin Ratio 1.0 1-3 Total Bilirubin 7.00 mg/dL High 0.2-1.0 Alkaline Phosphatase 187 U/L High 34-104 Alt 47 U/L 7-52 Egfr Non- 136.2 >60 Egfr 175.2 >60 21 Potassium 3.9 mmol/L 3.5-5.0 22 Anion Gap 4 mmol/L 2-11 Ast 80 U/L High 13-39 23 Laboratory test finding 08/01/2016 Potassium 4.0 mmol/L 3.5-5.0 Ast (Sgot) 77 U/L High 13-39 CBC Auto Diff 08/01/2016 White Blood Count 5.4 10^3/uL 3.5-10.8 Red Blood Count 4.19 10^6/uL 4.0-5.4 Hemoglobin 14.9 g/dL 14.0-18.0 Hematocrit 44 % 42-52 Mean Corpuscular Volume 104 fL High 80-94 Mean Corpuscular Hemoglobin 35 pg High 27-31 Mean Corpuscular HGB Conc 34 g/dL 31-36 Red Cell Distribution Width 14 % 10.5-15 Platelet Count 80 10^3/uL Low 150-450 24 Mean Platelet Volume 9 um3 7.4-10.4 Abs Neutrophils 3.2 10^3/uL 1.5-7.7 Abs Lymphocytes 1.3 10^3/uL 1.0-4.8 Abs Monocytes 0.5 10^3/uL 0-0.8 Abs Eosinophils 0.3 10^3/uL 0-0.6 Abs Basophils 0.1 10^3/uL 0-0.2 Abs Nucleated RBC 0.01 10^3/uL Granulocyte % 59.8 % 38-83 Lymphocyte % 23.8 % Low 25-47 Monocyte % 9.0 % 1-9 Eosinophil % 4.8 % 0-6 Basophil % 2.6 % High 0-2 Nucleated Red Blood Cells % 0.2 1 Consistent with Previous Results Reported on 10/21/16. 2 Because ethnic data is not always readily available, this report includes an eGFR for both -Americans and non- Americans. The National Kidney Disease Education Program (NKDEP) does not endorse the use of the MDRD equation for patients that are not between the ages of 18 and 70, are , have extremes of body size, muscle mass, or nutritional status, or are non- or non-. According to the National Kidney Foundation, irrespective of diagnosis, the stage of the disease is based on the level of kidney function: Stage Description GFR(mL/min/1.73 m(2)) 1 Kidney damage with normal or decreased GFR 90 2 Kidney damage with mild decrease in GFR 60-89 3 Moderate decrease in GFR 30-59 4 Severe decrease in GFR 15-29 5 Kidney failure <15 (or dialysis) 3 Because ethnic data is not always readily available, this report includes an eGFR for both -Americans and non- Americans. The National Kidney Disease Education Program (NKDEP) does not endorse the use of the MDRD equation for patients that are not between the ages of 18 and 70, are , have extremes of body size, muscle mass, or nutritional status, or are non- or non-. According to the National Kidney Foundation, irrespective of diagnosis, the stage of the disease is based on the level of kidney function: Stage Description GFR(mL/min/1.73 m(2)) 1 Kidney damage with normal or decreased GFR 90 2 Kidney damage with mild decrease in GFR 60-89 3 Moderate decrease in GFR 30-59 4 Severe decrease in GFR 15-29 5 Kidney failure <15 (or dialysis) 4 Because ethnic data is not always readily available, this report includes an eGFR for both -Americans and non- Americans. The National Kidney Disease Education Program (NKDEP) does not endorse the use of the MDRD equation for patients that are not between the ages of 18 and 70, are , have extremes of body size, muscle mass, or nutritional status, or are non- or non-. According to the National Kidney Foundation, irrespective of diagnosis, the stage of the disease is based on the level of kidney function: Stage Description GFR(mL/min/1.73 m(2)) 1 Kidney damage with normal or decreased GFR 90 2 Kidney damage with mild decrease in GFR 60-89 3 Moderate decrease in GFR 30-59 4 Severe decrease in GFR 15-29 5 Kidney failure <15 (or dialysis) 5 Therapeutic concentration: <50 ug/mL Toxic concentration: >120 ug/mL 6 Critical Result ETOH:434.5 Called to [id number] at: 06:54:51 by:[email or web address] Read back by:[id number] Critical Result LACT:2.2 Called to [id number] at: 06:55:37 by:[id number] Read back by:[id number] [place] Severe Sepsis and Septic Shock Management Bundle Measure requires all lactic acids initially measuring >2.0 mmol/L be repeated. 8 Consistent with previous results on 08/15/16. 9 Because ethnic data is not always readily available, this report includes an eGFR for both -Americans and non- Americans. The National Kidney Disease Education Program (NKDEP) does not endorse the use of the MDRD equation for patients that are not between the ages of 18 and 70, are , have extremes of body size, muscle mass, or nutritional status, or are non- or non-. According to the National Kidney Foundation, irrespective of diagnosis, the stage of the disease is based on the level of kidney function: Stage Description GFR(mL/min/1.73 m(2)) 1 Kidney damage with normal or decreased GFR 90 2 Kidney damage with mild decrease in GFR 60-89 3 Moderate decrease in GFR 30-59 4 Severe decrease in GFR 15-29 5 Kidney failure <15 (or dialysis) 10 Macrocytic anemia with thrombocytopenia noted. Findings consistent with prior results. Additional studies as clinically warranted. Reviewed by Dr. Stewart 11 Because ethnic data is not always readily available, this report includes an eGFR for both -Americans and non- Americans. The National Kidney Disease Education Program (NKDEP) does not endorse the use of the MDRD equation for patients that are not between the ages of 18 and 70, are , have extremes of body size, muscle mass, or nutritional status, or are non- or non-. According to the National Kidney Foundation, irrespective of diagnosis, the stage of the disease is based on the level of kidney function: Stage Description GFR(mL/min/1.73 m(2)) 1 Kidney damage with normal or decreased GFR 90 2 Kidney damage with mild decrease in GFR 60-89 3 Moderate decrease in GFR 30-59 4 Severe decrease in GFR 15-29 5 Kidney failure <15 (or dialysis) 12 Consistent with previous results on 08/01/16. 13 FASTING 10 HOUR 14 FASTING 10 HOUR 15 FASTING 10 HOUR 16 FASTING 10 HOUR 17 Desirable <150 Borderline high 150-199 High 200-499 Very High >500 18 Desirable <200 Borderline high 200-239 High >239 19 Low <40 Desirable: 40-60 High: >60 20 Desirable: <100 mg/dL Near Optimal: 100-129 mg/dL Borderline High: 130-159 mg/dL High: 160-189 mg/dL Very High: >189 mg/dL 21 Because ethnic data is not always readily available, this report includes an eGFR for both -Americans and non- Americans. The National Kidney Disease Education Program (NKDEP) does not endorse the use of the MDRD equation for patients that are not between the ages of 18 and 70, are , have extremes of body size, muscle mass, or nutritional status, or are non- or non-. According to the National Kidney Foundation, irrespective of diagnosis, the stage of the disease is based on the level of kidney function: Stage Description GFR(mL/min/1.73 m(2)) 1 Kidney damage with normal or decreased GFR 90 2 Kidney damage with mild decrease in GFR 60-89 3 Moderate decrease in GFR 30-59 4 Severe decrease in GFR 15-29 5 Kidney failure <15 (or dialysis) [address] CHURCH [address] CHURCH 24 Consistent with previous results on 07/02/16. Procedures Date CPT Code Description Status 10/07/2017 07172 EKG Tracing & Interpretation Completed 03/28/2017 76409 EKG Tracing & Interpretation Completed 11/20/2016 98423 Treadmill Interp/Report Only Completed 11/20/2016 26331 Stress Test Supervsn W/Out I/R Completed 10/02/2016 22321 ECHO Transthoracic, Real-Time 2D With Doppler And Color Completed Flow 09/24/2016 13988 EKG Tracing & Interpretation Completed 03/05/2010 79481 Fibroptic Laryngoscopy Completed Encounters Type Date Location Provider CPT E/M Dx Office Visit 10/07/2017 2:40p [facility] Susannataybeh S. Elaina, 80160 E78.2 M.DKalia F10.21 I73.9 F17.218 I71.9 Office Visit 08/27/2017 3:00p [facility] Isrrael Dobbins, 66067 Z00.00 Medicine - [place] Seo,FACP Z00.01 I73.9 K70.30 E78.2 Office Visit 05/12/2017 1:40p [facility] Isrrael Dobbins, [address]4765 T81.4xxD Medicine - [place] Seo,FACP I73.9 G60.8 Z23 Office Visit 03/28/2017 4:20p [facility] Isrrael Dobbins, 15908 Z01.810 Medicine - [place] Seo,FACP I73.9 F10.21 Z12.11 Office Visit 02/05/2017 1:40p [facility] Isrrael Dobbins, [address]83 I73.9 - [place] Seo,FACP K70.30 F17.218 Z23 Office Visit 11/22/2016 4:00p [facility] Deric S. Elaina, 91475 Z01.810 MQuique I72.4 I71.9 D69.6 F17.210 K70.30 Office Visit 11/14/2016 2:20p [facility] Medicine Isrrael Dobbins, 92586 I72.4 - [place] Seo,FACP D69.6 E83.42 F10.21 Office Visit 10/28/2016 2:10p [facility] Charlotte Pedroza, RAMYA [address] Z01.810 Medicine - [address] [address] I73.9 F17.210 E87.6 Z01.818 J44.9 Office Visit 09/24/2016 2:30p [facility] Qutaybeh S. Maghaydah, [address]199 K70.30 [address]James I72.4 I73.9 F17.210 R94.31 Office Visit 09/11/2016 1:40p [facility] Medicine Isrrael [place], [address] [address] Gabbi,FACP K70.10 F17.210 M79.671 Office Visit 08/28/2016 11:20a [facility] Brielle Saenz, DIRECTOR APPOINTMENT [address] M79.[address] - [address] K70.11 K76.6 Office Visit 08/07/2016 1:00p [facility] Brielle Saenz, SALLY [address] [address]00[address] - [address] K70.11 K76.6 I87.312 D69.6 F17.210 Z23 Z00.00 Office Visit 07/31/2016 8:40a [facility] Brielle Saenz, SALLY [address] [address]70[address] - [address] K76.6 R60.0 Z13.220 Z13.1 I87.312 Z23 Office Visit 03/05/2010 10:45a [facility], [address] 476.0 [facility] [place] Gabbi 352.1 Plan of Care Future Appointment(s):11/06/2017 2:30 pm - [place] [facility] at [facility]03/11/2018 2:20 pm - SALLY [place] at [facility] - [address]/07/2017 - Deric Delaney M.D.E78.2 Mixed yetwdecrivgvoyB21.21 Alcohol dependence, in emmtbnvrxY23.9 Peripheral vascular disease, nzyzsypwrqaI34.218 Nicotine dependence, cigarettes, w oth yqilzhmfeD85.9 Aortic aneurysm of unspecified site, without ruptureNew Orders: EchocardiogramFollow up:10 months ov
[2017-10-22 21:54] LABS: Hematocrit 37 % (42-52); Hemoglobin 12.8 g/dl (14.0-18.0); Mean Corpuscular HGB Conc 35 g/dl (31-36); Mean Corpuscular Hemoglobin 37 pg (27-31); Mean Corpuscular Volume 107 fL (80-94); Red Blood Count 3.46 10^6/ul (4.00-5.40); Red Cell Distribution Width 16 % (10.5-15); White Blood Count 8.3 10^3/ul (3.5-10.8)
[2017-10-22 22:33] LABS: ABS Basophils 0.1 10^3/ul (0-0.2); ABS Eosinophils 0.2 10^3/ul (0-0.6); ABS Lymphocytes 1.3 10^3/ul (1.0-4.8); ABS Monocytes 0.6 10^3/ul (0-0.8); ABS Neutrophils 6.2 10^3/ul (1.5-7.7); ABS Nucleated RBC 0 10^3/ul; Eosinophil % 1.9 % (0-6); Lymphocyte % 15.8 % (25-47); Mean Platelet Volume 9.5 um3 (7.4-10.4); Nucleated Red Blood Cells % 0.1; Platelet Count 75 10^3/ul (150-450)
--- NOTE | 2017-10-23 00:03 | RAD ---
EXAM: US Abdomen Limited, Right Upper Quadrant EXAM DATE/TIME: 10/22/2017 11:25 PM CLINICAL HISTORY: 57 years old, male; Pain; Abdominal pain; Generalized; Additional info: Ruq pain, suspect cholecystitis TECHNIQUE: Real-time ultrasound of the right upper quadrant with image documentation. COMPARISON: ABD COMP US ABDOMEN COMPLETE 09/05/2016 8:36 AM FINDINGS: Liver: Nodular hepatic margin compatible with chronic hepatic disease. Hepatomegaly measuring 16.9 cm. Gallbladder: Cholelithiasis. Gallbladder wall is thickened, measuring 4.5 mm. Gallbladder is distended. Common bile duct: Comment bile duct is dilated, measuring up to 1.3 cm. No stones. Pancreas: Pancreas is poorly evaluated. Right kidney: Unremarkable. No stones. No solid mass. No hydronephrosis. Free fluid: Small amount of ascites is visualized. IMPRESSION: Cholelithiasis. There is gallbladder wall thickening measuring 4.5 mm. Given the presence of a negative ultrasonographic Collins's, thickening may be on a reactive basis. Please correlate clinically. Dilated common bile duct measuring up to 1.3 cm. Distal stone or mass not excluded. Nodular hepatic margins indicating chronic hepatic disease.
[2017-10-23] MEDS ORDERED: Morphine VIAL* 10 MG/ML 1 ML VIAL ONE (01:24)
[2017-10-23 05:44] VITALS: BP 123/70
[2017-10-23 06:10] LABS: Urine Appearance Clear; Urine Blood 1+ (Negative); Urine Color Amber; Urine Ketones Negative (Negative); Urine Protein Negative (Negative); Urine Red Blood Cell 2+(6-10/hpf) (Absent); Urine Specific Gravity 1.021 (1.010-1.030); Urine Urobilinogen Positive (Negative); Urine White Blood Cell Trace(0-5/hpf) (Absent)
== END 2017-10-23 04:15 | disposition short-term general hospital (02) ==
LOC: ED 20:24
DX: K83.1 Obstruction of bile duct (principal); E80.6 Other disorders of bilirubin metabolism; K74.60 Unspecified cirrhosis of liver; K81.9 Cholecystitis, unspecified; F17.210 Nicotine dependence, cigarettes, uncomplicated
CPT/HCPCS: 36415; 76705; 80053; 80307; 80320; 81003; 81015; 82140; 83605; 83690; 85025; 87086; 93005; 96374; 96375; 96376; 99285; G0480; J2270; J2405